=== PATIENT | male | born 1940 | race Hispanic/Latino ===

== ENCOUNTER → 2018-02-02 | Outpatient (CLI) | payer OTHER | END | disposition home or self-care (01) | LOC: SLP 19:42 | PROVIDERS: ATTEND Internal Medicine Cardiovascular Disease | DX: G47.30 Sleep apnea, unspecified (principal) | CPT/HCPCS: 95810 ==

== ENCOUNTER 2019-09-08 06:23 | Day surgery (SDC) | payer OTHER ==
[2019-09-05 10:30] VITALS: BP 126/88
[2019-09-05 10:51] LABS: BASOPHILS % (AUTO) 1.1 % (0.0-5.0); EOSINOPHILS % (AUTO) 1.8 % (0.0-8.0); HEMATOCRIT 44.7 % (42-54); LYMPHOCYTES % (AUTO) 24.1 % (21.0-51.0); MEAN CORPUSCULAR HGB CONC 33.8 g/dL (32.0-36.0); MEAN CORPUSCULAR VOLUME 94.7 fL (79-99); MONOCYTES % (AUTO) 10.2 % (3.0-13.0); NEUTROPHILS % (AUTO) 62.4 % (40.0-77.0); PLATELET COUNT (AUTO) 177 K/uL (130-400); RED BLOOD CELL COUNT(AUTO) 4.72 MIL/uL (4.50-6.20); RED CELL DISTRIBUTION WIDTH 13.1 % (11.0-15.5); WHITE BLOOD COUNT (AUTO) 5.5 K/uL (4.8-10.8)
[2019-09-05 11:03] LABS: CREATININE 1.3 mg/dL (0.5-1.5); POTASSIUM 4.1 mmol/L (3.5-5.1)
[2019-09-05 11:07] LABS: PARTIAL THROMBOPLASTIN TIME 37.2 SEC (26.3-35.5)
[2019-09-05 11:47] LABS: INR 3.58 (0.85-1.15); PROTHROMBIN TIME 35.8 SEC (9.6-11.6)
--- NOTE | 2019-09-05 11:49 | NUR ---
refuses blood- yudi's witness Addendum: 09/05/19 at 1151 by EDGAR FERRELL RN RN Amended: Links added.
--- NOTE | 2019-09-05 12:00 | NUR ---
NOTE PT 35.8, INR 3.58, LAST DOSE COUMADIN 09/04/19. REPORTED TO JAUN MORE. PER LASHONDA, REPEAT PT/INR UPON ARRIVAL DAY OF PROCEDURE. ALSO NOTIFIED LASHONDA PT REFUSES BLOOD, JEHOVA'S WITNESS. LASHONDA WILL TALK TO DR. ALCARAZ IF HE WANTS ANESTHESIA WITH PROCEDURE IF TRANSEPTAL NEEDED. SHE WILL CALL BACK.
[2019-09-08] VITALS (10 sets, daily range): BP systolic 90–109; BP diastolic 62–78
[~2019-09-08] VITALS: Ht 166.4 cm; Wt 100.4 kg
[~2019-09-08 06:23] MED LIST: AMIO200T5 PO; BISA5TAB12 PO; EZET10TA48 PO; FURO20TA4 PO; PRAV20TA4 PO; SODIUM CHLORIDE 0.9% 1000ML 1,000 ML IV SCH; WARF1TAB83 PO
--- NOTE | 2019-09-08 06:30 | NUR ---
PATIENT ARRIVED TO DAY PATIENT ACCOMPANIED BY SPOUSE AND DAUGHTER. PATIENT AAOX3, RESPIRATIONS UNLABORED, VITAL SIGNS STABLE, DENIES ANY PAIN AT THIS TIME. PROCEDURE VERIFIED/CONFIRMED WITH PATIENT, HOSPITAL ROUTINE EXPLAINED. PATIENT AND FAMILY VERBALIZED UNDERSTANDING.
[2019-09-08 07:05] LABS: INR 1.74 (0.85-1.15); PARTIAL THROMBOPLASTIN TIME 30.2 SEC (26.3-35.5); PROTHROMBIN TIME 17.9 SEC (9.6-11.6)
--- NOTE | 2019-09-08 10:15 | NUR ---
PATIENT TRANSFERRED TO study director VIA BED BY DOMINGO.LAUREN AND LAUREN HEARN.
[2019-09-08] MEDS ORDERED: MEPERIDINE-PF 25 MG/ML SYG ONE ×3 (10:36→11:07)
[2019-09-08] MEDS ORDERED: LIDOCAINE HCL 2% 20ML ONE (10:36)
[2019-09-08] MEDS ORDERED: MIDAZOLAM HCL 1 MG/ML 2ML VIAL ONE ×3 (10:36→11:07)
[2019-09-08] MEDS ORDERED: HEPARIN SODIUM 1000UNIT/ML 10ML VIAL ONE (10:36)
[2019-09-08] MEDS ORDERED: ISOPROTERENOL HCL 0.2 MG/ML AMP/VIAL/BAG ONE (11:06)
[2019-09-08] MEDS ORDERED: AMIO400T4 PO (12:15)
--- NOTE | 2019-09-08 12:30 | NUR ---
PATIENT RETURNED FROM [employer] VIA BED BROUGHT BY LAUREN LANE.
--- NOTE | 2019-09-08 13:57 | NUR ---
CALLED IN PRESCRIPTION FOR AMIODARONE 400MG TO [facility] IN [place], SPOKE WITH PATRICK.
--- NOTE | 2019-09-08 15:00 | NUR ---
HANDOFF COMMUNICATION REPORT GIVEN TO ALL AMEZQUITA RN USING SBAR, GIVEN AT BEDSIDE. DRESSING TO RIGHT GROIN DRY AND INTACT, FAMILY AT BEDSIDE.
--- NOTE | 2019-09-08 16:00 | NUR ---
PT. LEFT VIA WHEELCHAIR, IN PVT CAR, PT. STABLE DRESSING DRY AND INTACT, NO HEMATOMA, NO BLEEDING, NO PAIN TO RIGHT GROIN, RX COPY GIVEN TO DAUGHTER WITH D/C INSTRUCTION AND F/U APPT.
== END 2019-09-08 16:00 | disposition home or self-care (01) ==
LOC: DAH 06:23
PROVIDERS: ATTEND Internal Medicine Cardiovascular Disease
DX: I47.1 Supraventricular tachycardia (principal); I48.0 Paroxysmal atrial fibrillation; E78.5 Hyperlipidemia, unspecified; G47.33 Obstructive sleep apnea (adult) (pediatric); Z79.01 Long term (current) use of anticoagulants; Z79.899 Other long term (current) drug therapy
CPT/HCPCS: 36415 ×2; 80048; 85025; 85610 ×2; 85730 ×2; 93005; 93620; 93621; A4215; A4216; A4221; A4222; A4223 ×3; A4606; A4649 ×2; C1730 ×3; C1894 ×5; J1644; J2175 ×3; J2250 ×3; J3490; 99156; 99157

== ENCOUNTER → 2020-05-14 | Outpatient (CLI) | payer OTHER ==
[~2020-05-14] MED LIST changes: -AMIO200T5 PO; +AMIO400T4 PO; -SODIUM CHLORIDE 0.9% 1000ML 1,000 ML IV SCH
== END | disposition home or self-care (01) ==
LOC: SHCH 08:05
PROVIDERS: ATTEND Internal Medicine Cardiovascular Disease
DX: I09.9 Rheumatic heart disease, unspecified (principal)
CPT/HCPCS: 93306; 93356

== ENCOUNTER → 2020-05-27 | Outpatient (CLI) | payer OTHER ==
[~2020-05-27] VITALS: Ht 165.1 cm; Wt 99.8 kg
[~2020-05-27] MED LIST changes: +ACET-2743 PO; +AMIO200T6 PO; +BACL10TA PO; +SODIUM CHLORIDE 0.9% 500ML 500 ML IV SCH
[2020-05-27 12:25] LABS: BASOPHILS % (AUTO) 1.1 % (0.0-5.0); EOSINOPHILS % (AUTO) 1.2 % (0.0-8.0); HEMATOCRIT 48.2 % (42-54); LYMPHOCYTES % (AUTO) 22.4 % (21.0-51.0); MEAN CORPUSCULAR HEMOGLOBIN 32.2 pg (27.0-33.0); MEAN CORPUSCULAR HGB CONC 33.4 g/dL (32.0-36.0); MEAN CORPUSCULAR VOLUME 96.4 fL (79-99); NEUTROPHILS % (AUTO) 65.9 % (40.0-77.0); PLATELET COUNT (AUTO) 156 K/uL (130-400); RED CELL DISTRIBUTION WIDTH 12.8 % (11.0-15.5); WHITE BLOOD COUNT (AUTO) 5.7 K/uL (4.8-10.8)
[2020-05-27 12:40] LABS: PARTIAL THROMBOPLASTIN TIME 43.9 SEC (26.3-35.5)
[2020-05-27 13:03] LABS: CREATININE 1.3 mg/dL (0.5-1.5); POTASSIUM 4.5 mmol/L (3.5-5.1)
[2020-05-27 13:09] LABS: INR 4.53 (0.85-1.15); PROTHROMBIN TIME 46.2 SEC (9.6-11.6)
[2020-05-28 11:13] VITALS: BP 135/76
== END | disposition home or self-care (01) ==
LOC: DAH 10:00 → EDSTATUS 05-29 12:00
PROVIDERS: ATTEND Internal Medicine Cardiovascular Disease
DX: Z01.810 Encounter for preprocedural cardiovascular examination (principal); I34.2 Nonrheumatic mitral (valve) stenosis; Z53.8 Procedure and treatment not carried out for other reasons; Z79.01 Long term (current) use of anticoagulants
CPT/HCPCS: 36415; 80048; 85025; 85610; 85730; 93005

== ENCOUNTER 2020-06-07 06:32 | Day surgery (SDC) | payer OTHER ==
[2020-06-05 12:21] LABS: CREATININE 1.1 mg/dL (0.5-1.5); POTASSIUM 3.8 mmol/L (3.5-5.1)
[2020-06-05 12:23] LABS: BASOPHILS % (AUTO) 1.2 % (0.0-5.0); EOSINOPHILS % (AUTO) 1.5 % (0.0-8.0); HEMATOCRIT 47.1 % (42-54); LYMPHOCYTES % (AUTO) 22.6 % (21.0-51.0); MEAN CORPUSCULAR HEMOGLOBIN 32.3 pg (27.0-33.0); MONOCYTES % (AUTO) 9.9 % (3.0-13.0); NEUTROPHILS % (AUTO) 64.6 % (40.0-77.0); PLATELET COUNT (AUTO) 160 K/uL (130-400); RED BLOOD CELL COUNT(AUTO) 4.96 MIL/uL (4.50-6.20); RED CELL DISTRIBUTION WIDTH 12.9 % (11.0-15.5); WHITE BLOOD COUNT (AUTO) 5.9 K/uL (4.8-10.8)
[2020-06-05 13:00] LABS: PARTIAL THROMBOPLASTIN TIME 41.5 SEC (26.3-35.5)
[2020-06-05 13:03] LABS: INR 3.69 (0.85-1.15); PROTHROMBIN TIME 37.9 SEC (9.6-11.6)
[2020-06-06 17:10] VITALS: BP 146/75
--- NOTE | 2020-06-06 17:52 | NUR ---
Reported inr of 3.69, new orders to recheck inr in am and heart clinic called patient to hold coumadin per Danelle SNIDERP.
[~2020-06-07] VITALS: Ht 167.6 cm; Wt 103.4 kg
[~2020-06-07 06:32] MED LIST changes: -AMIO400T4 PO
[2020-06-07 07:00] VITALS: BP 144/77
[2020-06-07 07:19] LABS: INR 2.96 (0.85-1.15); PROTHROMBIN TIME 30.7 SEC (9.6-11.6)
[2020-06-07] MEDS ORDERED: SODIUM CHLORIDE 0.9% 1000ML 1,000 ML IV ONE (07:28)
[2020-06-07] MEDS ORDERED: LIDOCAINE HCL 2% VISCOUS 15 ML UDCUP PO SCH (08:00)
[2020-06-07] MEDS ORDERED: FENTANYL CITRATE PF 50 MCG/1 ML 2ML VIAL ONE (08:18)
[2020-06-07] MEDS ORDERED: MIDAZOLAM HCL 1 MG/ML 2ML VIAL ONE (08:19)
[2020-06-07 10:15] VITALS: BP 137/77
--- NOTE | 2020-06-07 10:15 | NUR ---
BILLY COMPLETED-NO ACUTE DISTRESS. AIRWAY PATENT .VS STABLE. AWAKE AND ALERT. AT BEDSIDE. SPEAKING TO DR ARMSTRONG.
[2020-06-07 10:30] VITALS: BP 137/77
[2020-06-07 10:45] VITALS: BP 137/77
[2020-06-07 11:00] VITALS: BP 119/69
--- NOTE | 2020-06-07 11:30 | NUR ---
PT DISCHARGED HOME WITH . TO CAR VIA WHEELCHAIR. PRINTED AND VERBAL DISCHARGE INSTRUCTIONS GIVEN VERBALIZES UNDERSTANDING. NO ACUTE DISTRESS NOTED
== END 2020-06-07 11:30 | disposition home or self-care (01) ==
LOC: DAH 06:32
PROVIDERS: ATTEND Internal Medicine Cardiovascular Disease
DX: I35.0 Nonrheumatic aortic (valve) stenosis (principal); I05.0 Rheumatic mitral stenosis; I09.9 Rheumatic heart disease, unspecified; E78.5 Hyperlipidemia, unspecified; G47.33 Obstructive sleep apnea (adult) (pediatric); Z79.01 Long term (current) use of anticoagulants; Z79.899 Other long term (current) drug therapy
CPT/HCPCS: 36415 ×2; 80048; 85025; 85610 ×2; 85730; 93005; 93313; A4215; A4216; A4221; A4222; A4223 ×3; A4606; A4663; J2250; J3010; J7030; 99152; 99153

== ENCOUNTER 2020-07-11 07:21 | Day surgery (SDC) | payer OTHER ==
[2020-07-01 15:06] LABS: BASOPHILS % (AUTO) 1.3 % (0.0-5.0); EOSINOPHILS % (AUTO) 1.6 % (0.0-8.0); HEMATOCRIT 46.1 % (42-54); MEAN CORPUSCULAR HEMOGLOBIN 31.5 pg (27.0-33.0); MEAN CORPUSCULAR HGB CONC 33.2 g/dL (32.0-36.0); MEAN CORPUSCULAR VOLUME 95.1 fL (79-99); MONOCYTES % (AUTO) 10.8 % (3.0-13.0); PLATELET COUNT (AUTO) 161 K/uL (130-400); RED BLOOD CELL COUNT(AUTO) 4.85 MIL/uL (4.50-6.20); RED CELL DISTRIBUTION WIDTH 13.1 % (11.0-15.5); WHITE BLOOD COUNT (AUTO) 6.3 K/uL (4.8-10.8)
[2020-07-01 15:16] LABS: CREATININE 1.4 mg/dL (0.5-1.5)
[2020-07-01 15:20] LABS: INR 3.32 (0.85-1.15); PARTIAL THROMBOPLASTIN TIME 39.3 SEC (26.3-35.5); PROTHROMBIN TIME 34.2 SEC (9.6-11.6)
[2020-07-01 15:21] LABS: APPEARANCE,URINE Cloudy (CLEAR); BILIRUBIN,URINE Negative (NEGATIVE); COLOR,URINE Yellow (YELLOW); GLUCOSE, URINE (UA) Negative (NEGATIVE); KETONES,URINE Negative (NEGATIVE); LEUKOCYTE ESTERASE ,URINE Negative (NEGATIVE); NITRATE,URINE Negative (NEGATIVE); OCCULT BLOOD,URINE Negative (NEGATIVE); PROTEIN,URINE Negative (NEGATIVE)
[2020-07-01 15:30] LABS: BACTERIA,URINE Few /HPF (None Seen); RBC,URINE 0-1 /HPF (0-1); SQUAMOUS EPITHELIAL CELL,UR Rare /HPF (0-2); WBC,URINE 0-1 /HPF (0-1)
[2020-07-09 14:18] LABS: BASOPHILS % (AUTO) 1.3 % (0.0-5.0); EOSINOPHILS % (AUTO) 1.6 % (0.0-8.0); HEMATOCRIT 48.7 % (42-54); LYMPHOCYTES % (AUTO) 24.5 % (21.0-51.0); MEAN CORPUSCULAR HGB CONC 33.7 g/dL (32.0-36.0); MEAN CORPUSCULAR VOLUME 94.9 fL (79-99); MONOCYTES % (AUTO) 9.5 % (3.0-13.0); NEUTROPHILS % (AUTO) 62.9 % (40.0-77.0); PLATELET COUNT (AUTO) 179 K/uL (130-400); RED BLOOD CELL COUNT(AUTO) 5.13 MIL/uL (4.50-6.20); RED CELL DISTRIBUTION WIDTH 13.2 % (11.0-15.5); WHITE BLOOD COUNT (AUTO) 5.6 K/uL (4.8-10.8)
[2020-07-09 14:21] LABS: APPEARANCE,URINE Clear (CLEAR); BILIRUBIN,URINE Negative (NEGATIVE); COLOR,URINE Yellow (YELLOW); GLUCOSE, URINE (UA) Negative (NEGATIVE); KETONES,URINE Negative (NEGATIVE); LEUKOCYTE ESTERASE ,URINE Negative (NEGATIVE); NITRATE,URINE Negative (NEGATIVE); OCCULT BLOOD,URINE Negative (NEGATIVE); PH,URINE 5.5 (5.0-8.0); PROTEIN,URINE Negative (NEGATIVE)
[2020-07-09 14:32] LABS: INR 2.23 (0.85-1.15); PARTIAL THROMBOPLASTIN TIME 32.9 SEC (26.3-35.5); PROTHROMBIN TIME 23.4 SEC (9.6-11.6)
[2020-07-09 14:38] LABS: CREATININE 1.2 mg/dL (0.5-1.5)
[2020-07-10 11:00] VITALS: BP 142/70
--- NOTE | 2020-07-10 14:42 | NUR ---
DOS/LABS ABNORMAL LABS INCLUDING PT, INR, AND BUN REPORTED TO SAUL OROURKE. TELEPHONE ORDERS RECEIVED TO REPEAT PT AND INR STAT ON MORNING OF PROCEDURE SCHEDULED FOR 07/11/2020. DATE OF SERVICE ALSO CLARIFIED WITH SAUL OROURKE.
[2020-07-11] VITALS (9 sets, daily range): BP systolic 115–131; BP diastolic 65–76
[~2020-07-11] VITALS: Ht 165.1 cm; Wt 100.4 kg
[~2020-07-11 07:21] MED LIST changes: -ACET-2743 PO; -BISA5TAB12 PO; -PRAV20TA4 PO; +ROSU20TA31 PO
[2020-07-11 07:58] LABS: INR 1.6 (0.85-1.15)
[2020-07-11] MEDS ORDERED: SODIUM CHLORIDE 0.9% 1000ML 1,000 ML IV ONE (09:44)
[2020-07-11] MEDS ORDERED: BIVALIRUDIN 250 MG/VIAL IV ONE (11:26)
[2020-07-11] MEDS ORDERED: MIDAZOLAM HCL 1 MG/ML 2ML VIAL ONE (11:26)
[2020-07-11] MEDS ORDERED: LIDOCAINE HCL 2% 20ML ONE ×2 (11:26→12:23)
[2020-07-11] MEDS ORDERED: IOHEXOL-350 50ML VIAL IV ONE (11:26)
[2020-07-11] MEDS ORDERED: IOHEXOL 350 MG/ML 100ML INFUS..BTL IV ONE (11:26)
[2020-07-11] MEDS ORDERED: NITROGLYCERIN 2 MG/VIAL VIAL IV ONE (11:26)
[2020-07-11] MEDS ORDERED: HEPARIN SODIUM 1000UNIT/ML 10ML VIAL ONE (11:26)
[2020-07-11] MEDS ORDERED: SODIUM CHLORIDE 0.9% 1000ML 1,000 ML IV SCH (13:30)
[2020-07-11] MEDS ORDERED: FE F1CAP33 PO ×2 (14:31→14:32)
--- NOTE | 2020-07-11 15:45 | NUR ---
As per Dr. Toledo CD of cath procedure given to pt spouse. Verbalized understanding. -Lito
--- NOTE | 2020-07-11 16:35 | NUR ---
Bedside report given to Cassi Mcmahan RN
--- NOTE | 2020-07-11 16:35 | NUR ---
REPORT RECEIVED FROM LAUREN JACKSON AT BEDSIDE USING SBAR. DRESSING TO RIGHT GROIN DRY/INTACT, NO HEMATOMA NOTED, AREA SOFT/NONTENDER. PATIENT'S SPOUSE AT BEDSIDE.
--- NOTE | 2020-07-11 17:45 | NUR ---
PATIENT DISCHARGED FROM FACILITY VIA WHEELCHAIR BY LIZZIE STEIN RN AND ASSISTED INTO PRIVATE VEHICLE DRIVEN BY FAMILY MEMBER.
== END 2020-07-11 17:45 | disposition home or self-care (01) ==
LOC: DAH 07:21
PROVIDERS: ATTEND Internal Medicine Cardiovascular Disease
DX: I35.0 Nonrheumatic aortic (valve) stenosis (principal); I05.0 Rheumatic mitral stenosis; I09.9 Rheumatic heart disease, unspecified; I25.10 Atherosclerotic heart disease of native coronary artery without angina pectoris; I48.0 Paroxysmal atrial fibrillation; E78.5 Hyperlipidemia, unspecified; E86.0 Dehydration; G47.33 Obstructive sleep apnea (adult) (pediatric); Z99.89 Dependence on other enabling machines and devices; E66.9 Obesity, unspecified; Z79.01 Long term (current) use of anticoagulants; Z79.899 Other long term (current) drug therapy
CPT/HCPCS: 36415 ×3; 71045 ×2; 80048 ×2; 81001; 81003; 85025 ×2; 85610 ×3; 85730 ×2; 93005 ×2; 93460; 96360; 96361; A4215; A4216; A4221; A4222; A4223 ×3; A4606; A4663; C1760; C1769; C1893; C1894 ×3; J1644; J2250; J3490 ×3; J7030; Q9965; Q9967 ×2; 99156; 99157; J0583

== ENCOUNTER 2023-05-18 06:48 | Day surgery (SDC) | payer OTHER ==
[2023-05-17 14:30] LABS: BASOPHILS % (AUTO) 1.6 % (0.0-5.0); EOSINOPHILS # (AUTO) 0.12 K/uL (0.00-0.70); EOSINOPHILS % (AUTO) 1.9 % (0.0-8.0); HEMATOCRIT 48.1 % (42-54); IMMATURE GRANULOCYTE ABSOLUTE 0.01 K/uL (0-1); LYMPHOCYTES # (AUTO) 1.5 K/uL (1.0-4.8); LYMPHOCYTES % (AUTO) 23.3 % (21.0-51.0); MEAN CORPUSCULAR HEMOGLOBIN 31.8 pg (27.0-33.0); MEAN CORPUSCULAR HGB CONC 32.8 g/dL (32.0-36.0); MEAN CORPUSCULAR VOLUME 96.8 fL (79-99); MONOCYTES # (AUTO) 0.6 K/uL (0.1-1.0); MONOCYTES % (AUTO) 9.3 % (3.0-13.0); NEUTROPHILS # (AUTO) 4.1 K/uL (1.8-7.7); NEUTROPHILS % (AUTO) 63.7 % (40.0-77.0); PLATELET COUNT (AUTO) 144 K/uL (130-400); RED BLOOD CELL COUNT(AUTO) 4.97 MIL/uL (4.50-6.20); RED CELL DISTRIBUTION WIDTH 13.4 % (11.0-15.5); WHITE BLOOD COUNT (AUTO) 6.4 K/uL (4.8-10.8)
[2023-05-17 14:36] LABS: INR 2.28 (0.85-1.15); PROTHROMBIN TIME 25.1 SEC (9.6-11.6)
[2023-05-17 14:38] VITALS: BP 116/71; PULSE 80; RESP 15
[2023-05-17 14:39] LABS: CREATININE 1.1 mg/dL (0.5-1.5); POTASSIUM 4.3 mmol/L (3.5-5.1)
[2023-05-18] VITALS (18 sets, daily range): BP systolic 103–139; BP diastolic 55–89; PULSE 46–70; RESP 7–23
[~2023-05-18] VITALS: Ht 167.6 cm; Wt 95.5 kg
[~2023-05-18 06:48] MED LIST changes: -AMIO200T6 PO; +AMIO200T68 PO; -ROSU20TA31 PO; +ROSU20TA73 PO; -SODIUM CHLORIDE 0.9% 500ML 500 ML IV SCH
[2023-05-18] MEDS ORDERED: 0.9%NACL 1000ML 1,000 ML IV ONE (07:30)
[2023-05-18] MEDS ORDERED: ACET-2521 PO (07:56)
[2023-05-18] MEDS ORDERED: MIDAZOLAM HCL 1 MG/ML 2ML VIAL ONE (08:13)
[2023-05-18] MEDS ORDERED: FENTANYL CITRATE PF 50 MCG/1 ML 2ML VIAL ONE (08:13)
[2023-05-18] MEDS ORDERED: NALOXONE HCL 0.4 MG/1 ML ML ONE (08:14)
[2023-05-18] MEDS ORDERED: FLUMAZENIL 0.1MG/1ML 5ML VIAL IV ONE (08:14)
== END 2023-05-18 10:50 | disposition home or self-care (01) ==
LOC: DAH 06:48
PROVIDERS: ATTEND Internal Medicine Cardiovascular Disease
DX: I48.19 Other persistent atrial fibrillation (principal); I48.4 Atypical atrial flutter; I25.10 Atherosclerotic heart disease of native coronary artery without angina pectoris; E78.5 Hyperlipidemia, unspecified; E66.9 Obesity, unspecified; G47.33 Obstructive sleep apnea (adult) (pediatric); Z79.899 Other long term (current) drug therapy; Z98.890 Other specified postprocedural states; Z79.01 Long term (current) use of anticoagulants; Z68.31 Body mass index [BMI] 31.0-31.9, adult
CPT/HCPCS: 80048; 85025; 85610; 85730; 36415; 92960; 93005 ×2; J3010; J7030; J2250; A4215; A4222; A4221; A4663; A4216; A4606; A4223 ×3; 99152; J2310; J3490; G0500